=== PATIENT | female | born 1965 | race Caucasian/White ===

== ENCOUNTER 2020-05-26 01:35 | Emergency (ER) | payer OTHER, SELFPAY ==
[~2020-05-26] VITALS: Ht 142.2 cm; Wt 72.6 kg
[2020-05-26 01:43] VITALS: BP 145/83
--- NOTE | 2020-05-26 02:30 | NUR ---
BIBA TO ER BED 5
--- NOTE | 2020-05-26 02:30 | NUR ---
Pt also c/o RUQ pain radiating to back, x1 day. Denies fever/chills, n/v/d.
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
[2020-05-26] MEDS ORDERED: DICYCLOMINE HCL LIQUID 20 MG, ALUMINUM HYD/MAG/SIMETHICONE 30 ML, LIDOCAINE VISCOUS 2% ... PO ONE ×3 (02:50)
[2020-05-26] MEDS ORDERED: NACL 0.9% 1,000 ML IV ONE (02:50)
[2020-05-26] MEDS ORDERED: ONDANSETRON 4 MG/2 ML VIAL IVP ONE (02:50)
[2020-05-26] MEDS ORDERED: KETOROLAC 30 MG/ML VIAL IVP ONE (02:50)
[2020-05-26] MEDS ORDERED: LIDOCAINE VISCOUS 2% 20 ML UDC ONE (03:17)
[2020-05-26] MEDS ORDERED: ALUMINUM HYD/MAG/SIMETHICONE 30 ML UDC ONE (03:17)
[2020-05-26] MEDS ORDERED: DICYCLOMINE HCL LIQUID 10 MG/5 ML UDC ONE (03:18)
--- NOTE | 2020-05-26 03:34 | NUR ---
Mylanta out of stock in ER at this time, Dr Arevalo made aware. Per Dr Arevalo, hold and do not give GI cocktail.
[2020-05-26 03:37] LABS: BASOPHILS % (AUTO) 0.5 % (0.0-2.0); EOSINOPHILS # (AUTO) 0.1 K/uL (0-0.4); HEMATOCRIT 40.4 % (36-48); HEMOGLOBIN 13.2 g/dL (12.0-16.0); LYMPHOCYTES # (AUTO) 2.2 K/uL (2.5-16.5); LYMPHOCYTES % (AUTO) 22.2 % (20.5-51.1); MEAN CORPUSCULAR HEMOGLOBIN 29 pg (27-31); MEAN CORPUSCULAR HGB CONC 33 g/dL (33-37); MONOCYTES # (AUTO) 0.7 K/uL (0.8-1.0); MONOCYTES % (AUTO) 7.3 % (1.7-9.3); NEUTROPHILS # (AUTO) 6.9 K/uL (1.8-7.7); PLATELET COUNT (AUTO) 330 K/uL (140-450); RED BLOOD CELL COUNT(AUTO) 4.54 MIL/uL (4.20-5.40); RED CELL DISTRIBUTION WIDTH 13.3 % (11.6-13.7); WHITE BLOOD COUNT (AUTO) 9.9 K/uL (4.8-10.8)
[2020-05-26 03:40] LABS: APPEARANCE,URINE HAZY (CLEAR); BILIRUBIN,URINE NEGATIVE (NEGATIVE); BLOOD, URINE NEGATIVE (NEGATIVE); COLOR,URINE YELLOW (YELLOW); LEUKOCYTE ESTERASE ,URINE NEGATIVE (NEGATIVE); NITRITE, URINE NEGATIVE (NEGATIVE); UGLUCOSE NEGATIVE (NEGATIVE)
--- NOTE | 2020-05-26 03:50 | NUR ---
COVID SWAB COLECTED FROM [facility] AND SENT TO LAB
[2020-05-26 03:54] LABS: RBC,URINE 0-5 /HPF (0-5)
[2020-05-26 03:56] LABS: BARBITURATE, URINE NEGATIVE ng/ml (NEG <=200); BENZODIAZEPINE, URINE NEGATIVE ng/mL (NEG <=200); CANNABINOID, URINE NEGATIVE ng/mL (NEG <=50); COCAINE, URINE NEGATIVE ng/mL (NEG <=300); OPIATE, URINE NEGATIVE ng/mL (NEG <=2000); PHENCYCLIDINE SCREEN,URINE NEGATIVE ng/mL (NEG <=25)
[2020-05-26 04:08] LABS: ANION GAP 16.8 (8-16); CARBON DIOXIDE 28.5 mmol/L (21-32); CHLORIDE 103 mmol/L (98-107); CREATININE 0.9 mg/dL (0.6-1.3); GFR ARICAN-AMERICAN 84 mL/min (>90); GLUCOSE 99 mg/dL (74-106); POTASSIUM 3.3 mmol/L (3.5-5.1); SODIUM SERUM 145 mmol/L (136-145); UREA NITROGEN, BLOOD 12 mg/dL (7-18)
[2020-05-26 04:13] LABS: ALBUMIN 3.7 g/dL (3.4-5.0); AMYLASE 39 U/L (25-115); ASPARTATE AMINOTRANSFERASE 38 U/L (15-37); LIPASE 144 U/L (73-393); TOTAL BILIRUBIN 0.7 mg/dL (0.0-1.0)
--- NOTE | 2020-05-26 04:15 | NUR ---
US AT BEDSIDE
[2020-05-26 04:16] LABS: ACETAMINOPHEN < 0.5 ug/ml (10-30); SALICYLATE < 2.8 mg/dL (2.8-20.0)
--- NOTE | 2020-05-26 04:40 | NUR ---
PT SLEEPING IN BED COMFORTABLY. ALL NEEDS MET
--- NOTE | 2020-05-26 06:30 | NUR ---
SITTER AT BEDSIDE
--- NOTE | 2020-05-26 06:57 | NUR ---
SPOKE TO KISHAN FROM INTAKE AT [facility]. ANSWERED PHONE SCREENING QUESTIONS. PT WAS ACCEPTED TO [facility]. ADMITTED BY DR. ATKINS. [facility] [phone]
--- NOTE | 2020-05-26 07:00 | NUR ---
[facility] CALLED FOR TRANSPORT TO [facility]. ETA 1 HR.
--- NOTE | 2020-05-26 07:13 | NUR ---
REPORT GIVEN TO SUMA WOOTEN. TRANSFER OF CARE AT THIS TIME.
--- NOTE | 2020-05-26 07:18 | NUR ---
RECEIVED REPORT FROM SUMA SALAZAR.PT SLEEPING COMFORTABLY IN BED SIDE RAILS UP X1 AND LOCK , SITTER AT BEDSIDE.
--- NOTE | 2020-05-26 07:57 | NUR ---
CALLED [facility] SPOKE TO KISHAN , EMT AKI RECEIVED PT WITH STABLE V/S TRANPORTED VIA [facility].
[2020-05-26 07:59] VITALS: BP 126/64
--- NOTE | 2020-05-26 07:59 | NUR ---
Patient to be transferred to [facility]. Is being transferred for higher level of care. Receiving facility has accepting physician and available space. ER physician has signed transfer form. Patient or responsible green party has agreed to transfer and signed form. Patient belongings inventoried and will be sent with patient. Copy of nursing notes, lab reports, EKG, Physicians Orders and X-rays to be sent with patient. Report called to lacie at receiving facility. [facility] ambulance service has been called for transfer. ETA is 45 minutes.
== END 2020-05-26 07:59 ==
LOC: MED 01:35 → EEVIPCON 01:35 → MED 07:59
DX: R10.13 Epigastric pain (principal); F06.2 Psychotic disorder with delusions due to known physiological condition; F20.9 Schizophrenia, unspecified; R45.850 Homicidal ideations; Z98.890 Other specified postprocedural states; Z20.828 Contact with and (suspected) exposure to other viral communicable diseases
CPT/HCPCS: 36415; 76705; 80053; 80305; 81001; 82150; 83690; 84703; 85025; 87086; 93005; 96374; 96375; 99285; G0480; G0482; J1885; J2405; Q0092; U0003; J7030